=== PATIENT | female | born 1945 | race Caucasian/White ===

== ENCOUNTER → 2019-07-23 | Outpatient (CLI) | payer OTHER ==
[~2019-07-23] MED LIST: OMNIPAQUE 350 MG/ML, 100ML BOTTLE ONE
== END | disposition home or self-care (01) ==
LOC: CFH 09:24
PROVIDERS: ATTEND Family Medicine
DX: K80.20 Calculus of gallbladder without cholecystitis without obstruction (principal); N28.1 Cyst of kidney, acquired
CPT/HCPCS: 74177; 82565; Q9967

== ENCOUNTER → 2019-08-25 | Outpatient (CLI) | payer OTHER ==
[~2019-08-25] MED LIST changes: +AMLO-150 PO; +ASPI-496 PO; +ATOR20TA37 PO; +IRBE300T8 PO; +LEVO75TA59 PO; +METO50TA82 PO; -OMNIPAQUE 350 MG/ML, 100ML BOTTLE ONE; +TRAM50TA2 PO
[2019-08-25 10:56] LABS: ALBUMIN 3.6 g/dL (3.4-5.0); ANION GAP 6 mmol/L (5-15); CALCIUM 8.3 mg/dL (8.5-10.1); CHLORIDE 112 mmol/L (98-107)
[2019-08-25 10:59] LABS: ALANINE AMINOTRANSFERASE 36 U/L (12-78); ALKALINE PHOSPHATASE 123 U/L (45-117); BILIRUBIN,TOTAL 0.8 mg/dL (0.2-1.0); CREATININE 0.83 mg/dL (0.55-1.02); TOTAL PROTEIN 7.1 g/dL (6.4-8.2)
== END | disposition home or self-care (01) ==
LOC: STAR 09:41
PROVIDERS: ATTEND Surgery
DX: Z01.818 Encounter for other preprocedural examination (principal); I51.7 Cardiomegaly
CPT/HCPCS: 36415; 80053; 93005

== ENCOUNTER 2019-08-29 05:42 | Day surgery (SDC) | payer OTHER ==
[2019-08-25 12:36] VITALS: BP 177/89
[~2019-08-29] VITALS: Ht 162.6 cm; Wt 79.4 kg
[2019-08-29] MEDS ORDERED: LACTATED RINGERS 1,000 ML IV SCH (06:09)
[2019-08-29] MEDS ORDERED: BUPIVACAINE/PF 0.25% ONE (06:12)
[2019-08-29] MEDS ORDERED: CHLORHEXIDINE 15 ML UDC MM ONE (06:30)
[2019-08-29] MEDS ORDERED: SUGAMMADEX 200 MG/2 ML IVPush ONE (06:52)
[2019-08-29] MEDS ORDERED: KETOROLAC 30 MG/1 ML ONE (06:52)
[2019-08-29] MEDS ORDERED: EPHEDRINE 50 MG/ML, 1ML ONE (06:52)
[2019-08-29] MEDS ORDERED: FENTANYL PF 100 MCG/2ML ONE ×3 (07:00→08:18)
[2019-08-29] MEDS ORDERED: ROCURONIUM 10MG/ML,5ML ONE (07:26)
[2019-08-29] MEDS ORDERED: CEFOTETAN PMX 2GM/50ML 50 ML ONE (07:26)
[2019-08-29] MEDS ORDERED: NEOSTIGMINE 1 MG/ML, 10ML ONE (07:26)
[2019-08-29] MEDS ORDERED: ONDANSETRON 2MG/ML, 2ML ONE (07:26)
[2019-08-29] MEDS ORDERED: DEXAMETHASONE 4 MG/ML, 1ML ONE (07:26)
[2019-08-29] MEDS ORDERED: SUCCINYLCHOLINE 20 MG/ML, 10ML ONE (07:26)
[2019-08-29] MEDS ORDERED: GLYCOPYRROLATE 0.2MG/1ML, 5ML ONE (07:26)
[2019-08-29] MEDS ORDERED: PROPOFOL 10 MG/ML, 20ML ONE (07:26)
[2019-08-29] MEDS ORDERED: PROMETHAZINE 25 MG/ML, 1ML IVPush PRN (07:30)
[2019-08-29] MEDS ORDERED: ALBUTEROL SULFATE 2.5 MG/3 ML NPPB PRN (07:30)
[2019-08-29] MEDS ORDERED: ACETAMINOPHEN 325 MG TABLET PO PRN (07:30)
[2019-08-29] MEDS ORDERED: OXYcodone 5 MG/5 ML ORAL.SOL UDC PO PRN (07:30)
[2019-08-29] MEDS ORDERED: hydrALAzine 20 MG/ML, 1ML IV PRN (07:30)
[2019-08-29] MEDS ORDERED: METOPROLOL 1 MG/ML, 5ML IV PRN (07:30)
[2019-08-29] MEDS ORDERED: LORazepam 2 MG/ML, 1ML IVPush PRN (07:30)
[2019-08-29] MEDS ORDERED: HYDROmorphone 1 MG/ML, 1ML INJ IVPush PRN (07:30)
[2019-08-29] MEDS ORDERED: hydrALAzine 20 MG/ML, 1ML ONE (07:52)
[2019-08-29] MEDS ORDERED: OXYcodone 5 MG/5 ML ORAL.SOL UDC ONE (08:18)
[2019-08-29] MEDS: FENTANYL PF 100 MCG/2ML IV PRN ×3 (08:19→08:33)
== END 2019-08-29 10:35 | disposition home or self-care (01) ==
LOC: OR 05:42
PROVIDERS: ATTEND Surgery
DX: K80.10 Calculus of gallbladder with chronic cholecystitis without obstruction (principal); Z11.59 Encounter for screening for other viral diseases; I10 Essential (primary) hypertension; E78.5 Hyperlipidemia, unspecified; G43.909 Migraine, unspecified, not intractable, without status migrainosus; E66.9 Obesity, unspecified; G47.30 Sleep apnea, unspecified; E03.9 Hypothyroidism, unspecified; Z87.891 Personal history of nicotine dependence; Z79.899 Other long term (current) drug therapy; Z98.890 Other specified postprocedural states; Z68.30 Body mass index [BMI] 30.0-30.9, adult; Z85.3 Personal history of malignant neoplasm of breast; Z87.01 Personal history of pneumonia (recurrent); Z86.711 Personal history of pulmonary embolism; Z90.710 Acquired absence of both cervix and uterus; Z85.828 Personal history of other malignant neoplasm of skin; Z79.82 Long term (current) use of aspirin; Z82.49 Family history of ischemic heart disease and other diseases of the circulatory system; Z80.42 Family history of malignant neoplasm of prostate; Z80.52 Family history of malignant neoplasm of bladder
CPT/HCPCS: 36415; 47562; 87635; 88304; J0330; J0360; J1100; J1885; J2405; J2704; J2710; J3010; J3490